=== PATIENT | female | born 1975 | race Caucasian/White ===

== ENCOUNTER 2017-05-24 06:44 | Day surgery (SDC) | payer MEDICAID ==
[2017-05-24] VITALS (12 sets, daily range): BP systolic 73–139; BP diastolic 49–72; PULSE 56–94; RESP 9–18; Ht 154.9 cm; Wt 58.8 kg
[~2017-05-24] VITALS: Ht 154.9 cm; Wt 58.8 kg
[2017-05-24] MEDS ORDERED: CEFAZOLIN 2 GM/50 ML (PMX) 50 ML IVPB ONE (11:00)
[2017-05-24] MEDS ORDERED: SOD CHLORIDE 0.9% 1,000 ML IV SCH (11:00)
[2017-05-24] MEDS ORDERED: MIDAZOLAM 1 MG/ML 2 ML INJ ONE (12:25)
[2017-05-24] MEDS ORDERED: FENTAnyl 50 MCG/ML VIAL ONE (12:25)
[2017-05-24] MEDS ORDERED: PROPOFOL 20 ML ONE (12:25)
[2017-05-24] MEDS ORDERED: LIDOCAINE 2% (SDV) 5 ML INJ ONE (12:25)
[2017-05-24] MEDS ORDERED: CEFAZOLIN 1 GM INJ ONE (12:32)
[2017-05-24] MEDS ORDERED: DEXAMETHASONE 4 MG/ML 1 ML INJ ONE (12:37)
[2017-05-24] MEDS ORDERED: ONDANSETRON 4 MG INJ ONE (12:37)
[2017-05-24] MEDS ORDERED: FAMOTIDINE 20 MG INJ ONE (12:37)
--- NOTE | 2017-05-24 13:03 | SIPON ---
Date/Time of Note Date/Time of Note DATE: 05/24/17 TIME: 13:02 Operative Report Preoperative Diagnosis Fibroepithelial lesion right breast rule out loyalties tumor Postoperative Diagnosis Same Operation/Procedure Performed Right needle directed excisional biopsy Surgeon see signature line surveyor instrument assistant Dr Lee Anesthesia: general Estimated blood loss: 0 - 10 ml's Transfusion Required none Specimen Right breast specimen Grafts/Implants none Complications none VAISHNAVI DURÁN MD May 24, 2017 13:03
[2017-05-24] MEDS ORDERED: MEPERIDINE 25 MG INJ IV PRN (13:30)
[2017-05-24] MEDS ORDERED: PROCHLORPERAZINE 10 MG INJ IV PRN (13:30)
[2017-05-24] MEDS ORDERED: ONDANSETRON 4 MG INJ IV PRN (13:30)
[2017-05-24] MEDS ORDERED: FENTAnyl 50 MCG/ML VIAL IV PRN (13:30)
[2017-05-24] MEDS ORDERED: OXYCODONE/ACETAMINOPHEN (5/325) TAB PO PRN (13:30)
[2017-05-24] MEDS ORDERED: HYDROmorphONE (0.2 MG/ML) 10ML SYG IV PRN (13:30)
[2017-05-24] MEDS ORDERED: DIPHENHYDRAMINE 50 MG INJ IV PRN (13:30)
[2017-05-24] MEDS ORDERED: HYDROCODONE/APAP (7.5/325) TAB PO PRN (13:30)
--- NOTE | 2017-05-24 14:49 | OPR ---
DATE OF OPERATION: 05/24/2017 PREOPERATIVE DIAGNOSIS: Fibroepithelial lesion, right breast. POSTOPERATIVE DIAGNOSIS: Fibroepithelial lesion, right breast. OPERATION PERFORMED: Needle-directed right breast excision. ANESTHESIA: General. ANESTHESIOLOGIST: Dr. Weiner. SURGEON: Sukhi Kumar MD ROLL HAND: Dr. Lee. INDICATIONS FOR PROCEDURE: The patient is a 42-year-old female who underwent surveillance mammograp hy, was found to have a suspicious lesion in her right breast. 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 Complete surgical excision was recommended. She consent ed and was scheduled for surgery. DESCRIPTION OF PROCEDURE: On the morning of surgery, the patient presented to [facility] where she underwent localization of the lesion performed by attending radiol ogist, Dr. Turner Jones. Subsequently, she was brought to the operating theater, placed under ge neral anesthesia. The right breast was prepped and draped in usual sterile fashion. An approximate ly 3-4 curvilinear incision was made in the region of the previously placed localization wire, which was at approximately the 11 o'clock location. Subcutaneous tissue was dissected with cautery down through the breast parenchyma. Within the breast parenchyma two lobulated adjacent lesions were alondra ntified clinically consistent with the diagnosis of a fibroepithelial lesion. They were meticulousl y resected from surrounding tissue, removed and sent for permanent pathologic analysis. The wound w as irrigated. Minimal bleeding was controlled with cautery, and the skin was then reapproximated wi th a 4-0 Vicryl suture in subcuticular fashion. Benzoin and Steri-Strips were then applied. Patien t tolerated procedure well. Estimated blood loss was 10 mL. There were no complications and the pa tient was transported in stable condition to the recovery room where circumferential compression francia ssing was applied. Dictated By: SUKHI KUMAR MD TL/NTS Conf#: [id number] DID#: [id number]
== END 2017-05-24 14:55 | disposition home or self-care (01) ==
LOC: SDS 06:44
PROVIDERS: ATTEND Surgery Surgical Oncology
DX: D24.1 Benign neoplasm of right breast (principal); N60.91 Unspecified benign mammary dysplasia of right breast; N60.11 Diffuse cystic mastopathy of right breast; N60.41 Mammary duct ectasia of right breast
CPT/HCPCS: 19120; 84703; 88307; J0690; J1100; J2175; J2250; J2405; J3010; Z7512; Z7610